=== PATIENT | male | born 1965 | race Caucasian/White ===

== ENCOUNTER 2024-12-11 10:08 | Outpatient (CLI) | payer OTHER, SELFPAY ==
[2024-12-11 10:43] VITALS: PULSE 67; RESP 18; O2SAT 95
== END 2024-12-11 10:09 | disposition home or self-care (01) ==
LOC: RT 10:17
PROVIDERS: Visit Provider Family Medicine
DX: Z02.71 Encounter for disability determination (principal); J98.8 Other specified respiratory disorders
CPT/HCPCS: 94060; 94618; J7613